=== PATIENT | male | born 1965 | race Caucasian/White ===

== ENCOUNTER 2019-09-28 10:50 | Outpatient (CLI) | payer MEDICAID, SELFPAY ==
[2019-09-28 11:04] VITALS: BMI 23.9
--- NOTE | 2019-09-28 11:11 | ECG_ITS ---
NAME OF STUDY: TREADMILL STRESS TEST INDICATION: Chest Pain Baseline blood pressure of 108/74 mm Hg, heart rate 76 beats per minute and oxygen saturation 97%. EKG showed normal sinus rhythm with PVCs. Possible old anteroseptal infarct. The patient exercised for 6 minutes 39 seconds on a standard Ismael protocol. Patient attained a maximum heart rate of 148 beats per minute(89 % of the maximum predicted heart rate) with a blood pressure at the peak exercise of 163/72 mm Hg and oxygen saturation 87%. The EKG at the peak exercise revealed sinus tachycardia with no significant ST-T wave changes. Patient did not have any chest pain or any significant arrhythmias with the exercise During the recovery phase, there were no new changes. Blood pressure at the end of the recovery phase was 133/77 mm Hg with a heart rate of 73 beats per minute and oxygen saturation 97%. CONCLUSION: 1. Normal EKG response to treadmill exercise. 2. No exercise-induced chest pain or cardiac arrhythmia. 3. Good exercise tolerance, attained a maximum of 10.2 METs. Maximum VO2 of 35.7 mL/kg/min. 4. Baseline normal blood pressure with normal response to exercise. Electronically Signed On 09-28-2019 17:59:58 LEAD INSTRUCTOR/FLIGHT ATTENDANT by Sindi Sabillon M.D. [id number]
[2019-09-28 11:27] VITALS: BP 152/73; PULSE 79
== END 2019-09-28 10:51 | disposition home or self-care (01) ==
LOC: CDL 10:56
PROVIDERS: Family Provider Urology; Visit Provider Nurse Practitioner Family
DX: R07.9 Chest pain, unspecified (principal)
CPT/HCPCS: 93017

== ENCOUNTER 2020-02-19 11:17 | Emergency (ER) | payer MEDICAID, SELFPAY ==
[2020-02-19 11:22] VITALS: BP 127/72; PULSE 54; RESP 18; TEMP 36.7; O2SAT 98; BMI 23.1
--- NOTE | 2020-02-19 11:35 | CT_ITS ---
WS: [id number] CT ABDOMEN PELVIS TECHNIQUE: Noncontrast CT of the abdomen and pelvis with coronal and sagittal reformatted images. CLINICAL INFORMATION: flank pain COMPARISON: None. DLP: 680.[address] scans at [facility] use at least one of these dose optimization techniques: automat ed exposure control; mA and/or kV adjustment per patient size (includes targeted exams where dose is matched to clinical indication); or iterative reconstruction. FINDINGS: Noncontrast liver is normal. Normal noncontrast gallbladder. Adrenal glands are normal. Noncontrast s pleen is unremarkable. Normal GE junction. Lung bases are well aerated. Adrenal glands are normal. Obstructing RIGHT PROXIMAL URETERAL CALCULUS IN THE RIGHT PROXIMAL THIRD U RETER MEASURING 3 MM with mild right ureterectasis. No significant hydronephrosis. Slight inflammator y stranding about the right proximal ureter. Distal right ureter is decompressed. Left ureter is norm al. No obstructing left calculi. Additional nonobstructing bilateral calyceal tip calculi. Noncontrast pancreas appears unremarkable. Aortic calcification. Normal caliber abdominal aorta. No evidence of small or large bowel obstruction. No free fluid in the pelvis. Slightly prominent pros song measuring 5 cm in maximum dimension. Notified Catarino Noel DO at 02/19/2020 1:[address]/CT kidney stone [id number] IMPRESSION: 1. 3 mm obstructing right proximal third ureteral calculus with mild right ure terectasis. Mild inflammatory stranding about the proximal right ureter. No sig nificant hydronephrosis. 2. Additional nonobstructing calyceal tip calculi bilaterally. 3. Prominent prostate measuring 5.1 CM. Recommend correlation PSA.
[2020-02-19 11:52] VITALS: RESP 15
[2020-02-19] MEDS: ondansetron 2 mg/ML SDV 2 mL 4 MG IVP (11:52)
[2020-02-19] MEDS: morphine 4 mg/mL SDV 1 mL 6 MG IVP (11:52)
[2020-02-19] MEDS: sodium chloride 0.9% 1,000 ML 999 ML IV (11:53)
[2020-02-19 11:55] LABS: Basophils % 0.5 %; Eosinophils # 0.1 10^3/uL (0.0-0.8); Eosinophils % 1.5 %; Hematocrit 46.7 % (42.0-52.0); Hemoglobin 15.6 g/dL (11.7-16.6); Lymphocytes # 1.6 10^3/uL (0.8-4.8); Lymphocytes % 25.6 %; Mean Corpuscular HGB Conc 33.4 g/dL (30.0-36.0); Mean Corpuscular Hemoglobin 31.6 pg (28.0-34.0); Mean Corpuscular Volume 94.5 fL (80-94); Mean Platelet Volume 12.3 fL (7.4-10.4); Monocytes # 0.4 10^3/uL (0.2-0.9); Neutrophils % 65.2 %; Nucleated Red Blood Cells % 0 %; Platelet Count 194 10^3/cmm (130-400); Red Blood Count 4.94 10^6/uL (4.1-5.3); Red Cell Distribution Width 12.2 % (12.1-15.1); White Blood Count 6.1 10^3/uL (4.0-10.0)
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
[2020-02-19 12:07] LABS: Alanine Aminotransferase 17 U/L (0-41); Alkaline Phosphatase 59 IU/L (40-130); Anion Gap 14.5 (5-19); Aspartate Amino Transferase 20 U/L (0-40); Blood Urea Nitrogen 15 mg/dL (6-20); Carbon Dioxide 25 mmol/L (22-29); Chloride 107 mmol/L (98-107); Globulin 3.1 g/dL (1.3-4.6); Glomerular Filtration Rate 77.6 mL/min (90-130); Glucose 114 mg/dL (65-115); Osmolality Calculated 291 mOsm/kg (285-295); Potassium 4.5 mmol/L (3.5-5.1); Sodium 142 mmol/L (136-145); Total Bilirubin 0.5 mg/dL (0.15-1.2); Total Protein 7.1 g/dL (6.6-8.7)
[2020-02-19 13:28] LABS: Glucose Urine UA Norm (Normal); Protein Urine 3+ (Negative); Specific Gravity, Urine 1.025 (1.005-1.030); Urine Appearance Cloudy (CLEAR); Urine Color Brown (Yellow); pH Urine 6.5 (5-7)
[2020-02-19 13:29] LABS: Add Urine Microscopic? YES; Bilirubin Urine 1+ (NEGATIVE); Blood Urine 3+ (Negative); Ketones Urine 1+ (Negative); Leukocyte Esterase Urine 1+ (Negative); Nitrate Urine Positive (Negative); Urobilinogen Urine 1 mg/dL (Negative)
[2020-02-19 13:39] LABS: Add Urine Culture? Yes; Bacteria Urine 1+; RBC Urine TOO NUMEROUS TO CNT /hpf (0-2)
[2020-02-19 13:45] VITALS: RESP 16
[2020-02-19] MEDS: morphine 4 mg/mL SDV 1 mL IVP (13:45)
[2020-02-19] MEDS: cefTRIAXone 1,000 MG in sodium chloride 0.9% (plus) 50 ML 100 MG IV (13:45)
[2020-02-19 15:22] VITALS: BP 108/71; PULSE 60; RESP 14; O2SAT 99
--- NOTE | 2020-02-19 15:45 | PC.SOCIAL ---
Scheduled appt with Triny BARONE at [facility] for 02/21/2020 Wed 1:40 pm. Was given approval to speak with Adriana by patient on phone. Her number is [phone]. The number for patient is not accurate. Referral was to be seen within two days by a PCP or return to ED. Educated Adriana if patient feels worse prior to the appt scheduled on this Wed (2 days out) should return to ED. Adriana verbalized understanding. Provided phone number for clinic as well.
--- NOTE | 2020-02-29 14:38 | DCPLANNER ---
Patient did attend appointment scheduled for 02.21.20 at [facility].
== END 2020-02-19 15:23 | disposition home or self-care (01) ==
PROVIDERS: Emergency Provider Family Medicine
DX: N30.90 Cystitis, unspecified without hematuria (principal); N20.0 Calculus of kidney; F17.210 Nicotine dependence, cigarettes, uncomplicated
CPT/HCPCS: 12345; 74176; 80053; 81001; 81003; 85025; 87040; 87086; 96365; 96375; 96376; 99283; 99284; J0696; J2270; J2405; J7030

== ENCOUNTER → 2020-02-21 15:12 | Outpatient (BNVA) | payer MEDICAID, SELFPAY | PROVIDERS: Visit Provider Nurse Practitioner Family | DX: Z11.3 Encounter for screening for infections with a predominantly sexual mode of transmission (principal); N40.0 Benign prostatic hyperplasia without lower urinary tract symptoms; N30.90 Cystitis, unspecified without hematuria; N20.0 Calculus of kidney; Z68.24 Body mass index [BMI] 24.0-24.9, adult; F17.210 Nicotine dependence, cigarettes, uncomplicated; Z71.89 Other specified counseling | CPT/HCPCS: 80053; 85025; 87491; 87591; G0103 ==

== ENCOUNTER 2020-09-01 10:16 | Emergency (ER) | payer MEDICAID, SELFPAY ==
[2020-09-01 10:27] VITALS: BP 120/76; PULSE 70; RESP 16; TEMP 36.9; O2SAT 95; BMI 23.8
[2020-09-01 10:30] VITALS: BP 120/76; PULSE 62; RESP 16; O2SAT 96
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
[2020-09-01] MEDS: methylPREDNISolone (DEPO) 80 MG/ML INJ 1 mL IM (11:35)
[2020-09-01] MEDS: ketorolac 30 mg/mL INJ IM (11:35)
[2020-09-01] MEDS: orphenadrine 30 mg/mL Inj 2 mL 60 MG IM (11:35)
== END 2020-09-01 11:46 | disposition home or self-care (01) ==
PROVIDERS: Emergency Provider Family Medicine; PCP Nurse Practitioner Family
DX: M54.6 Pain in thoracic spine (principal); M62.830 Muscle spasm of back; F17.210 Nicotine dependence, cigarettes, uncomplicated
CPT/HCPCS: 12345; 96372; 99281; 99283; J1040; J1885; J2360

== ENCOUNTER → 2020-11-05 10:46 | Outpatient (BNVA) | payer MEDICAID, SELFPAY | PROVIDERS: PCP Nurse Practitioner Family; Visit Provider Nurse Practitioner Family | DX: M54.2 Cervicalgia (principal); M54.6 Pain in thoracic spine; G89.29 Other chronic pain; M25.511 Pain in right shoulder | CPT/HCPCS: 72040; 72070; 73030 ==

== ENCOUNTER → 2023-01-07 14:56 | Outpatient (BNVA) | payer MEDICAID, SELFPAY | PROVIDERS: PCP Nurse Practitioner Family; Visit Provider Nurse Practitioner Family | DX: Z11.3 Encounter for screening for infections with a predominantly sexual mode of transmission (principal); G89.29 Other chronic pain; M54.6 Pain in thoracic spine; N40.0 Benign prostatic hyperplasia without lower urinary tract symptoms; Z13.6 Encounter for screening for cardiovascular disorders | CPT/HCPCS: 80053; 80061; 81000; 84443; 85025; 86592; 86695; 86696; 86705; 86706; 86709; 86803; 87340; 87389; 87491; 87591; G0103 ==

== ENCOUNTER 2024-08-10 19:44 | Emergency (ER) | payer MEDICAID, SELFPAY ==
--- NOTE | 2024-08-10 19:48 | ECG_ITS ---
[facility]: 2024-[facility]10 Pat Name: Sherman Hernandez Department: Room: Gender: Male Cytopathologist: : 1965 Requested By: Coleman Bhat Order Number: [id number] Reading MD: MARIAELENA TEMPLE Measurements Intervals [place] Rate: 86 P: 76 NE: 190 QRS: 101 QRSD: 70 T: 54 QT: 322 QTc: 386 Interpretive Statements SINUS RHYTHM RIGHT AXIS DEVIATION [QRS AXIS > 100] POSSIBLE RIGHT VENTRICULAR CONDUCTION DELAY [RSR (QR) IN V1/V2] No previous ECG available for comparison Electronically Signed On 08-11-2024 23:22:53 BAR MANAGER by MARIAELENA TEMPLE [email or web address]
[2024-08-10 19:52] VITALS: BP 111/71; PULSE 77; RESP 18; TEMP 36.4; O2SAT 96
--- NOTE | 2024-08-10 20:19 | XRR_ITS ---
PROCEDURE INFORMATION: Exam: XR Chest Exam date and time: 08/10/2024 8:39 PM Age: 58 years old Clinical indication: Pain; Chest pressure; Additional info: Chest pain TECHNIQUE: Imaging protocol: Radiologic exam of the chest. Views: 1 view. COMPARISON: CR XR cervical spine 3V* [id number] 11/05/2020 10:49 AM FINDINGS: Lungs: Possible cavitary lesion in the right infrahilar station measuring up to 3.1 cm. This may be artifactual from a confluence of vascular shadows. Consider PA and lateral chest radiograph to confirm/exclude this finding. Pleural spaces: Unremarkable. No pleural effusion. No pneumothorax. Heart/Mediastinum: Unremarkable. No cardiomegaly. Bones/joints: Unremarkable. XR/XR chest 1V portable [id number] IMPRESSION: Possible cavitary lesion in the right infrahilar station measuring up to 3.1 cm. This may be artifactual from a confluence of vascular shadows. Consider PA and lateral chest radiograph to confirm/exclude this finding.
[2024-08-10 20:42] LABS: Basophils # 0.1 10^3/uL (0.0-0.1); Basophils % 0.6 %; Eosinophils # 0.2 10^3/uL (0.0-0.8); Eosinophils % 2.4 %; Hematocrit 44.2 % (37-53); Lymphocytes # 2.4 10^3/uL (0.8-4.8); Lymphocytes % 28.1 %; Mean Corpuscular HGB Conc 34.2 g/dL (30-55); Mean Corpuscular Hemoglobin 31.5 pg (27-33); Mean Corpuscular Volume 92.1 fl (82-101); Mean Platelet Volume 12.4 fL (7.4-10.4); Monocytes # 0.6 10^3/uL (0.2-0.9); Neutrophils # 5.18 10^3/uL (1.8-7.7); Neutrophils % 61.8 %; Nucleated Red Blood Cells % 0 %; Platelet Count 176 10^3/cmm (157-399); Red Cell Distribution Width 12.4 % (12.1-15.1); White Blood Count 8.39 10^3/uL (3.29-11.43)
[2024-08-10 21:01] LABS: Troponin(5th) Baseline < 6 ng/L (0-15)
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
[2024-08-10 21:11] LABS: Alanine Aminotransferase 20 U/L (0-41); Albumin Level 4.2 g/dL (3.5-5.2); Alkaline Phosphatase 69 U/L (40-130); Anion Gap 14.3 (5-19); Aspartate Amino Transferase 19 U/L (0-40); Blood Urea Nitrogen 21 mg/dL (6-20); Calcium 9.4 mg/dL (8.5-10.5); Carbon Dioxide 26 mmol/L (22-29); Chloride 104 mmol/L (98-107); Creatinine Clr Calc Pharmacy 68.2781; Globulin 2.6 g/dL (1.3-4.6); Glucose 87 mg/dL (65-115); Osmolality Calculated 292 mOsm/kg (285-295); Potassium 4.3 mmol/L (3.5-5.1); Sodium 140 mmol/L (136-145); Total Bilirubin 0.2 mg/dL (0.15-1.2); Total Protein 6.8 g/dL (6.6-8.7)
--- NOTE | 2024-08-10 21:57 | XRR_ITS ---
PROCEDURE INFORMATION: Exam: XR Chest Exam date and time: 08/10/2024 10:05 PM Age: 58 years old Clinical indication: Shortness of breath; Additional info: Possible cavitary lesion right infrahilar on portable, lat TECHNIQUE: Imaging protocol: Radiologic exam of the chest. Views: 1 view. COMPARISON: CR (CHEST, ) 08/10/2024 8:39 PM FINDINGS: Lungs: The previously seen possible cavitary lesion in the right hilum is again noted on the lateral view measuring up to 3.3 cm and incompletely assessed on this and the prior examination. Consider a chest CT with contrast for further evaluation. Pleural spaces: Unremarkable. No pleural effusion. No pneumothorax. Heart/Mediastinum: Unremarkable. No cardiomegaly. Bones/joints: Unremarkable. XR/XR chest 1V [id number] IMPRESSION: The previously seen possible cavitary lesion in the right hilum is again noted on the lateral view measuring up to 3.3 cm and incompletely assessed on this and the prior examination. Consider a chest CT with contrast for further evaluation.
--- NOTE | 2024-08-10 22:45 | CTR_ITS ---
PROCEDURE INFORMATION: Exam: CT Chest With Contrast; Diagnostic Exam date and time: 08/10/2024 10:58 PM Age: 58 years old Clinical indication: Shortness of breath; Additional info: Right infrahilar cavitary lesion on x-ray TECHNIQUE: Imaging protocol: Diagnostic computed tomography of the chest with contrast. Radiation optimization: All CT scans at this facility use at least one of these dose optimization techniques: automated exposure control; mA and/or kV adjustment per patient size (includes targeted exams where dose is matched to clinical indication); or iterative reconstruction. Contrast material: OMNI 350; Contrast volume: 100 ml; Contrast route: INTRAVENOUS (IV); COMPARISON: CR XR chest 1V [id number] 08/10/2024 10:05 PM RADIATION DOSE METRICS: Total DLP (mGy-cm): 386.41 FINDINGS: Lungs: Emphysematous changes in the periphery of the right and left lung with multiple bullous formations along the periphery at the apices and along the medial aspect of the right and left lungs including in the area of radiographic concern on the prior 2 chest radiographs. These bullae are likely of no clinical significance and do not represent infectious or neoplastic processes. Atelectatic changes in the lung bases. Otherwise, no focal consolidation, pleural effusion. Pleural spaces: See Lungs finding. Heart: Unremarkable. No cardiomegaly. No pericardial effusion. Lymph nodes: Unremarkable. No enlarged lymph nodes. Vasculature: Unremarkable. No aortic aneurysm. Bones/joints: Unremarkable. No acute fracture. Soft tissues: Unremarkable. CT/CT chest w con* [id number] IMPRESSION: 1. Emphysematous changes in the periphery of the right and left lung with multiple bullous formations along the periphery at the apices and along the medial aspect of the right and left lungs including in the area of radiographic concern on the prior 2 chest radiographs. These bullae are likely of no clinical significance and do not represent infectious or neoplastic processes. 2. Atelectatic changes in the lung bases. Otherwise, no focal consolidation, pleural effusion or suspicious pulmonary nodules or masses. COMMENTS: The presence of pulmonary emphysema on CT is an independent risk factor for lung cancer. In the absence of a history or active diagnosis of lung cancer, it is recommended that this patient with emphysema be evaluated for enrollment in a low dose CT lung cancer screening program.
[2024-08-10 22:53] LABS: Troponin 5 2HR Delta 0.10001 ABS# (0-10)
[2024-08-10] MEDS: iohexol 350 mg/mL 500 mL Btl (per mL) IV (23:01)
[2024-08-10 23:30] VITALS: BP 108/68; PULSE 82; RESP 18; O2SAT 96
== END 2024-08-10 23:33 | disposition home or self-care (01) ==
PROVIDERS: Emergency Provider Emergency Medicine; PCP Nurse Practitioner Family
DX: R07.9 Chest pain, unspecified (principal); R91.8 Other nonspecific abnormal finding of lung field; F17.210 Nicotine dependence, cigarettes, uncomplicated
CPT/HCPCS: 36415; 71045; 71260; 80053; 84484; 85025; 93005; 99285